=== PATIENT | male | born 1955 | race Two or more races ===

== ENCOUNTER 2022-12-16 20:09 | Emergency (ER) | payer OTHER ==
[~2022-12-16] VITALS: Ht 172.7 cm; Wt 70.3 kg
[2022-12-16] MEDS ORDERED: GABAPENTIN800 M1 PO (20:22)
[2022-12-16] MEDS ORDERED: PIOGLITAZONE HC30 MG PO (20:22)
[2022-12-16] MEDS ORDERED: JANUMET 50-1,01 EACH PO (20:23)
[2022-12-16] MEDS ORDERED: OMEPRAZOLE40 MG PO (20:23)
[2022-12-16] MEDS ORDERED: LISINOPRIL10 MG PO (20:23)
[2022-12-16] MEDS ORDERED: ROSUVASTATIN CA40 MG PO (20:23)
[2022-12-17] MEDS ORDERED: POLY119PG PO (03:12)
[2022-12-17] MEDS ORDERED: INTESTINEX680 M1 PO (03:12)
== END 2022-12-17 03:36 ==
LOC: ER 20:09
DX: K59.00 Constipation, unspecified (principal); E11.40 Type 2 diabetes mellitus with diabetic neuropathy, unspecified; Z79.84 Long term (current) use of oral hypoglycemic drugs; I10 Essential (primary) hypertension